=== PATIENT | female | born 1980 | race Caucasian/White ===

== ENCOUNTER 2019-11-18 23:40 | Inpatient (IN) | payer OTHER ==
[~2019-11-18] VITALS: Ht 165.1 cm; Wt 94.5 kg
[2019-11-19] VITALS (10 sets, daily range): BP systolic 98–119; BP diastolic 60–70; Ht 165.1 cm; Wt 94.5 kg
[2019-11-19 00:48] LABS: CALC OSMOLALITY 273 mosm/kg (275-300); CALCIUM 8.3 mg/dL (8.5-10.1); CARBON DIOXIDE 24.2 mmol/L (21.0-32.0); CHLORIDE - SERUM 105 mmol/L (98-107); CREATININE - SERUM 0.6 mg/dL (0.6-1.3); GLUCOSE 74 mg/dL (74-106); POTASSIUM - SERUM 3.6 mmol/L (3.5-5.1); SODIUM 139 mmol/L (136-145); UREA NITROGEN 4 mg/dL (7-18); eGFR NON AFRICAN AMERICAN > 90 mL/min (90-120)
[2019-11-19 00:49] LABS: BASOPHILS 0.1 % (0-2); EOSINOPHILS 0.3 % (0-7); HEMATOCRIT 35.6 % (36.0-48.0); HEMOGLOBIN 11.6 g/dL (12-16); IMMATURE GRANULOCYTES 1.2 % (0-5); LYMPHOCYTES 16.5 % (15-50); MCH 28.1 pg (26.0-34.0); MCHC 32.6 g/dL (31.0-37.0); MCV 86.2 fL (80.0-100.0); MEAN PLATELET VOLUME 8.8 fL (7.4-10.4); MONOCYTES 8.6 % (2-11); NEUTROPHILS 73.3 % (40-80); PLATELET COUNT 467 10x3/uL (130-400); RBC 4.13 10x6/uL (4.00-5.40); RDW 14.2 % (11.5-14.5); WBC 17.7 10x3/uL (4.8-10.8)
[2019-11-19 00:59] LABS: ALBUMIN 2.5 g/dL (3.4-5.0); ALKALINE PHOSPHATASE 94 U/L (30-120); ALT (SGPT) 20 U/L (10-68); BILIRUBIN - TOTAL 0.32 mg/dL (0.2-1.3); PROTEIN - SERUM 7.5 g/dL (6.4-8.2)
--- NOTE | 2019-11-19 01:00 | NUR ---
PT C/O PAIN TO IV SITE TO L UPPER ARM. IV RESITED TO R HAND.
--- NOTE | 2019-11-19 07:25 | NUR ---
ALERT AND ORIENTED. LUNGS CLEAR BILATERALLY. HEART SOUNDS S1 AND S2 HEARD IN ALL [place]. BOWEL SOUNDS ACTIVE X 4. IV TO RIGHT HAND PATENT WITHOUT REDNESS. DENIES NEEDS. BED LOW. CALL VALLES AND PERSONAL ITEMS IN REACH. WILL CONTINUE TO MONITOR.
[2019-11-19 09:01] LABS: CALC OSMOLALITY 277 mosm/kg (275-300); CARBON DIOXIDE 24.4 mmol/L (21.0-32.0); CHLORIDE - SERUM 107 mmol/L (98-107); CREATININE - SERUM 0.6 mg/dL (0.6-1.3); GLUCOSE 60 mg/dL (74-106); POTASSIUM - SERUM 3.5 mmol/L (3.5-5.1); SODIUM 142 mmol/L (136-145); UREA NITROGEN 3 mg/dL (7-18); eGFR NON AFRICAN AMERICAN > 90 mL/min (90-120)
[2019-11-19 09:07] LABS: INR 1.11 (0.85-1.17); PROTIME 14.2 SECONDS (11.6-15.0)
[2019-11-19 09:08] LABS: APTT 32.7 SECONDS (22.8-39.4)
[2019-11-19 09:23] LABS: BASOPHILS 0.2 % (0-2); EOSINOPHILS 0.4 % (0-7); HEMATOCRIT 35.3 % (36.0-48.0); HEMOGLOBIN 11.3 g/dL (12-16); LYMPHOCYTES 15.9 % (15-50); MCV 87.4 fL (80.0-100.0); MEAN PLATELET VOLUME 8.9 fL (7.4-10.4); MONOCYTES 8.2 % (2-11); NEUTROPHILS 74.3 % (40-80); PLATELET COUNT 473 10x3/uL (130-400); RBC 4.04 10x6/uL (4.00-5.40); RDW 14.5 % (11.5-14.5); WBC 16.6 10x3/uL (4.8-10.8)
--- NOTE | 2019-11-19 10:41 | NUR ---
RESTING IN BED. DENIES NEEDS. WILL CONTINUE TO MONITOR.
--- NOTE | 2019-11-19 20:00 | NUR ---
PT SITTING UP IN BED WITHOUT DISTRESS, AOX4. IV LEFT FA INFUSING NS @ 125. MORPHINE BEHAVIORAL TECHNICIAN FOR PAIN CONTROL. BILI DRAIN TO RIGHT SIDE WITH BLOODY DRAINAGE. DENIES NEEDS AT THIS TIME. CL IN REACH, WILL CTM
[2019-11-20 00:28] VITALS: BP 101/68
[2019-11-20 05:35] LABS: BASOPHILS 0.1 % (0-2); EOSINOPHILS 0.5 % (0-7); HEMOGLOBIN 10.7 g/dL (12-16); LYMPHOCYTES 21.2 % (15-50); MCH 27.4 pg (26.0-34.0); MCHC 31.5 g/dL (31.0-37.0); MCV 87.2 fL (80.0-100.0); MEAN PLATELET VOLUME 8.8 fL (7.4-10.4); MONOCYTES 6.6 % (2-11); NEUTROPHILS 70.6 % (40-80); PLATELET COUNT 439 10x3/uL (130-400); RDW 14.6 % (11.5-14.5); WBC 12.7 10x3/uL (4.8-10.8)
[2019-11-20 05:50] VITALS: BP 108/68
[2019-11-20 05:52] LABS: ALBUMIN 2.3 g/dL (3.4-5.0); ALKALINE PHOSPHATASE 78 U/L (30-120); ALT (SGPT) 18 U/L (10-68); BILIRUBIN - TOTAL 0.32 mg/dL (0.2-1.3); CALC OSMOLALITY 267 mosm/kg (275-300); CALCIUM 7.7 mg/dL (8.5-10.1); CARBON DIOXIDE 21.8 mmol/L (21.0-32.0); CHLORIDE - SERUM 103 mmol/L (98-107); CREATININE - SERUM 0.7 mg/dL (0.6-1.3); GLUCOSE 75 mg/dL (74-106); POTASSIUM - SERUM 3.6 mmol/L (3.5-5.1); PROTEIN - SERUM 6.7 g/dL (6.4-8.2); SODIUM 136 mmol/L (136-145); UREA NITROGEN 3 mg/dL (7-18); eGFR NON AFRICAN AMERICAN > 90 mL/min (90-120)
--- NOTE | 2019-11-20 08:00 | NUR ---
SHE IS ALART, TAKING. HAS A BILI DRAIN ON THE RIGHT SIDE OF HER ABD. SHE IS USING A FOOD COUNTER ATTENDANT FOR PAIN. THE CALL LIGHT IS WITHIN REACH.
[2019-11-20 09:00] VITALS: BP 108/72
[2019-11-20 18:01] VITALS: BP 126/77
--- NOTE | 2019-11-20 19:20 | NUR ---
PT SITTING UP IN BED WITHOUT DISTRESS, AOX4. IV RIGHT HAND INFUSING NS @ 125. BILI DRAIN TO RIGHT SIDE, DRESSING CDI. DENIES NEEDS AT THIS TIME. CL IN REACH, WILL CTM
[2019-11-20 20:00] VITALS: BP 111/67
--- NOTE | 2019-11-20 21:00 | NUR ---
PT STATES PAIN 11/12, GAVE NORCO ORDERED. DENIES OTHER NEEDS, WILL CTM
[2019-11-21] VITALS: BP 118/68
[2019-11-21 04:00] VITALS: BP 120/83
--- NOTE | 2019-11-21 07:27 | NUR ---
SHE IS ALERT, RATES PAIN 7/10. BILI DRAIN TO THE RIGHT LOWER SIDE OF HER ABDOMEM, DRESSING CLEAN AND DRY AND INTACT. THE CALL LIGHT IS WITHIN REACH.
--- NOTE | 2019-11-21 08:40 | NUR ---
HER IV IS OUT, I LET VICKI FROM OUT VASCULAR ACCESS TEAM KNOW ABOUT HER IV BEING OUT.
[2019-11-21 09:32] VITALS: BP 120/77
--- NOTE | 2019-11-21 09:45 | NUR ---
NEW IV TO THE LAC.
[2019-11-21 13:17] VITALS: BP 175/88
[2019-11-21 17:07] VITALS: BP 148/91
[2019-11-21 20:00] VITALS: BP 122/75
--- NOTE | 2019-11-21 20:00 | NUR ---
PT SITTING UP IN BED WITHOUT DISTRESS, AOX4. IV LEFT AC INFUSING NS @ 75. RIGHT SIDE BILI DRAIN IN PLACE, DRESSING CDI. DENIES NEEDS AT THIS TIME. CL IN REACH, WILL CTM
--- NOTE | 2019-11-21 23:00 | NUR ---
PT UP TO SHOWER AT THIS TIME, BILI DRAIN COVERED
[2019-11-22] VITALS: BP 111/73
[2019-11-22 04:00] VITALS: BP 129/77
[2019-11-22 05:18] LABS: BASOPHILS 0.1 % (0-2); HEMATOCRIT 32.6 % (36.0-48.0); HEMOGLOBIN 10.5 g/dL (12-16); IMMATURE GRANULOCYTES 0.5 % (0-5); LYMPHOCYTES 32.4 % (15-50); MCH 27.6 pg (26.0-34.0); MCHC 32.2 g/dL (31.0-37.0); MCV 85.6 fL (80.0-100.0); MEAN PLATELET VOLUME 8.8 fL (7.4-10.4); MONOCYTES 8.7 % (2-11); NEUTROPHILS 57.3 % (40-80); PLATELET COUNT 435 10x3/uL (130-400); RBC 3.81 10x6/uL (4.00-5.40); RDW 14.3 % (11.5-14.5)
[2019-11-22 05:23] LABS: WBC 7.3 10x3/uL (4.8-10.8)
[2019-11-22 05:47] LABS: CALCIUM 7.7 mg/dL (8.5-10.1); CHLORIDE - SERUM 109 mmol/L (98-107); CREATININE - SERUM 0.8 mg/dL (0.6-1.3); GLUCOSE 90 mg/dL (74-106); POTASSIUM - SERUM 3.4 mmol/L (3.5-5.1); SODIUM 141 mmol/L (136-145); eGFR NON AFRICAN AMERICAN 84 mL/min (90-120)
[2019-11-22 05:48] LABS: CALC OSMOLALITY 277 mosm/kg (275-300); CARBON DIOXIDE 27.4 mmol/L (21.0-32.0); UREA NITROGEN 4 mg/dL (7-18)
--- NOTE | 2019-11-22 07:26 | NUR ---
PT LAYING IN BED WITH EYES OPEN, ALERT AND ORIENTED. LAB CURRENTLY DRAWING BLOOD. IV LOCATED TO LEFT AC RUNNING NS @ 75ML/HR. BILIDRAIN LOCATED TO LEFT ABD. JOSÉ MIGUELIES NEEDS CURRENTLY, WILL CONT TO MONITOR.
[2019-11-22] MEDS ORDERED: LEVOFLOXACIN500 MG PO (08:44)
[2019-11-22] MEDS ORDERED: HYDROCODON-ACE1 EAC7 PO (08:44)
[2019-11-22 10:29] VITALS: BP 153/75
== END 2019-11-22 15:23 | disposition home or self-care (01) | DRG 373 ==
LOC: D.ER 23:40 → D.MS 11-19 00:21
PROVIDERS: Family Medicine; General Practice; ADMIT Surgery; ATTEND Surgery
PROC: 0W9G30Z Drainage of Peritoneal Cavity with Drainage Device, Percutaneous Approach (ICD-10-PCS; principal; 2019-11-19 14:13)
DX: K35.21 Acute appendicitis with generalized peritonitis, with abscess (principal); Z72.0 Tobacco use

== ENCOUNTER 2019-11-25 07:45 | Outpatient (CLI) | payer OTHER ==
[~2019-11-25] VITALS: Ht 165.1 cm; Wt 95.5 kg
--- NOTE | ~2019-11-25 | HEMODYNAMI ---
PATIENT:JOSEPH BARNETT MEDICAL RECORD: [id number] : 78 LOCATION:[facility] ADMISSION DATE: 11/25/19 Generatedon:11/25/201911:01 Patient name: JOSEPH BARNETT Patient #: [id number] SSN: : [id number] Date of study: 11/25/2019 Page: Of Hemodynamic Procedure Report Patient Data Patient Demographics Procedure consent was obtained First Name: JOSEPH Gender: Female Last Name: ERICKA : 1980 Patient #: [id number] Age: 39 year(s) Race: Unknown Additional ID: [id number] Contact details [address]: [address] [place] [address] State: [place] City: [place] Zip code: [address] Past Medical History Allergies Allergen Reaction Date Comments Reported Penicillins 11/25/2019 Admission Admission Data Admission Date: 11/25/2019 Admission Time: 7:45 Height (in.): 65 BSA: 2.02 (m2) Height (cm.): 165.1 BMI: 34.95 (kg/m2) Weight (lbs.): 210 Weight (kg.): 95.25 Procedure Procedure Types Cath Procedure Peripheral Cath Diagnostic Procedure Mechatronics Technologist Peripheral Procedures Abscess Abscessogram Procedure Description Procedure Date Procedure Date: 11/25/2019 Procedure Start Time: 10:44 Procedure Staff Name Function Inocente Muniz MD Performing Physician Melisa Guajardo RT Deckhand Oyster Dredge Terri STALLINGS RN Nurse Obey Stokes RT Scrub Procedure Data Cath Procedure Fluoroscopy Diagnostic fluoroscopy Total fluoroscopy Time: 2.2 time: 2.2 min min Diagnostic fluoroscopy Total fluoroscopy dose: 86 dose: 86 mGy mGy Contrast Material Contrast Material Type Amount (ml) Isovue 300 11 Hemodynamics Rest BSA: 2.02 (m2) O2 Consumption: Estimated: 202.37 (ml/min) O2 Consumption indexed : Estimated:100.18 (ml/min/m) Heart Rate: 66 (bpm) Snapshots Pre Cath Intra NCS Post Cath Vital Signs Time Heart Resp SPO2 etCO2 NIBP (mmHg) Rhythm Pain Sedation Rate (ipm) (%) (mmHg) Status Level (bpm) 10:33:53 64 16 98 0 146/89(106) NSR 0 (11) 10(A) , No pain 10:38:10 56 17 99 29.9 134/76(103) NSR 0 (11) 10(A) , No pain 10:42:17 58 21 99 29.1 136/86(100) NSR 0 (11) 10(A) , No pain 10:46:29 61 11 98 26.1 138/77(122) NSR 0 (11) 10(A) , No pain 10:50:39 67 10 97 32.8 140/82(119) NSR 0 (11) 10(A) , No pain 10:54:49 71 11 98 29.1 141/84(127) NSR 0 (11) 10(A) , No pain 10:59:01 57 15 99 35.8 144/79(97) NSR 0 (11) 10(A) , No pain Procedure Log Time Note 10:04:29 Patient Height : 65 inches 10:04:37 Patient Weight : 210 lbs 10:05:04 Time tracking: Regular hours (M-F 7:00 - 5:00) 10:05:18 Patient received from Outpatients to IR Alert and oriented. Tansferred to table in Supine position. 10:05:21 Signed procedure consent form obtained from patient. 10:05:27 H&P Date Dictated: 11/25/2019 Within 30 days and on chart., H&P Addendum completed by physician on day of procedure. (MUST COMPLETE FOR ALL OUTPATIENTS). 10:05:29 Pre-procedure instructions explained to patient. 10:05:30 Pre-op teaching completed and patient verbalized understanding. 10:05:33 Family in waiting room. 10:05:39 Patient NPO since Midnight. 10:05:49 Patient allergic to Penicillins 10:06:00 Is the patient allergic to Iodine/contrast media? No. 10:06:05 Is patient on blood thinner?No 10:06:09 - 10:21:46 Patient diabetic? No. 10:21:48 ----Pre-sedation anethsthesia assessment.---- 10:21:51 Previous problem with sedation/anesthesia? No ? 10:21:54 Snore? Yes 10:21:56 Sleep apnea? No 10:21:58 Deviated septum? No 10:22:00 Opens mouth fully? Yes 10:22:03 Sticks out tongue? Yes 10:22:05 Airway obstruction? No ? 10:22:09 Dentures? No ? 10:32:52 Vital chart was started 10:36:00 ECG and BP/O2 sat monitors applied to patient. 10:36:02 Baseline sample Acquired. 10:36:05 Full Disclosure recording started 10:36:06 - 10:44:02 Physician arrived 10:44:02 --------ALL STOP TIME OUT------ 10:44:03 Final Timeout: patient, procedure, and site verified with staff and physician. All members of the team are in agreement. 10:44:21 Right abdomen site verified by team. 10:44:27 Procedure started. 10:54:59 STOPCOCK 3-Way Large Bore ([id number]) opened to sterile field. 10:55:26 BAG, DRAINAGE EMPTY 600ML W/MANISH ([id number]) opened to sterile field. 10:55:47 Procedure ended.(Physican Out) 10:56:31 Fluoroscopy time 02.20 minutes. 10:56:44 Fluoroscopy dose: 86 mGy 10:56:44 Flurop Dose total: 86 10:56:57 Contrast amount:Isovue 300 11ml. 10:57:01 Procedure and supply charges have been captured, reviewed, submitted an d are correct. 11:00:27 Report given to Outpatients. 11:01:36 Vital chart was stopped Device Usage Item Manufacture Quantity Catalog Hospital Part Current Minimal Lot# / Name Number Charge Number Stock Stock Serial# Code [facility] 1 [id number] 3-Way Large Bore ([id number]) BAG, Merit 1 [id number] 5 DRAINAGE Medical EMPTY 600ML W/MANISH ([id number]) Signature Audit [place] Stage Time Signature Unsigned Intra-Procedure 11/25/2019 Melisa Guajardo 11:01:32 AM RT(R) [facility] [address] [place] [id number]
[~2019-11-25 07:45] MED LIST: HYDROCODON-ACE1 EAC7 PO; LEVOFLOXACIN500 MG PO
[2019-11-25 08:17] LABS: HEMATOCRIT 43.5 % (36.0-48.0); MCH 27.3 pg (26.0-34.0); MCHC 32.2 g/dL (31.0-37.0); MEAN PLATELET VOLUME 8.3 fL (7.4-10.4); RBC 5.12 10x6/uL (4.00-5.40); WBC 8.2 10x3/uL (4.8-10.8)
[2019-11-25 09:06] LABS: APTT 31.2 SECONDS (22.8-39.4); INR 1.05 (0.85-1.17); PROTIME 13.6 SECONDS (11.6-15.0)
[2019-11-25 09:10] LABS: CALC OSMOLALITY 279 mosm/kg (275-300); CALCIUM 9.4 mg/dL (8.5-10.1); CARBON DIOXIDE 30.9 mmol/L (21.0-32.0); CHLORIDE - SERUM 103 mmol/L (98-107); CREATININE - SERUM 0.7 mg/dL (0.6-1.3); GLUCOSE 86 mg/dL (74-106); SODIUM 142 mmol/L (136-145); UREA NITROGEN 6 mg/dL (7-18); eGFR NON AFRICAN AMERICAN > 90 mL/min (90-120)
[2019-11-25 09:22] VITALS: BP 116/72; Ht 165.1 cm; Wt 95.5 kg
== END 2019-11-25 12:15 | disposition home or self-care (01) ==
LOC: D.SP 07:45 → D.CT 10:00 → D.RAD 10:30 → D.SP 12:15
PROVIDERS: Radiology Diagnostic Radiology; ATTEND General Practice
DX: K35.33 Acute appendicitis with perforation, localized peritonitis, and gangrene, with abscess (principal)

== ENCOUNTER → 2019-12-03 10:37 | Outpatient (CLI) | payer OTHER ==
[2019-11-25 09:22] VITALS: BMI 35.0
--- NOTE | ~2019-12-03 | HEMODYNAMI ---
PATIENT:JOSEPH BARNETT MEDICAL RECORD: [id number] : 78 LOCATION:[facility] ADMISSION DATE: 12/03/19 Generatedon:12/03/201912:17 Patient name: JOSEPH BARNETT Patient #: [id number] SSN: : 1980 Date of study: 12/03/2019 Page: Of Hemodynamic Procedure Report Patient Data Patient Demographics Procedure consent was obtained First Name: JOSEPH Gender: Female Last Name: ERICKA : 1980 Patient #: [id number] Age: 39 year(s) Race: Unknown Additional ID: [id number] Contact details [address]: [address] [place] [address] State: [place] City: [place] Zip code: [address] Past Medical History Allergies Allergen Reaction Date Comments Reported Penicillins 11/25/2019 Penicillins 12/03/2019 Admission Admission Data Admission Date: 12/03/2019 Admission Time: 10:37 Procedure Procedure Types Cath Procedure Peripheral Cath Diagnostic Procedure Hydrator Peripheral Procedures Abscess Abscessogram Procedure Description Procedure Date Procedure Date: 12/03/2019 Procedure Start Time: 12:11 Procedure Staff Name Function Issa Umana MD Performing Physician Melisa Guajardo RT Office Technician Nimco Strauss RN Nurse SHOAIB GASPAR RT Scrub Procedure Data Cath Procedure Fluoroscopy Diagnostic fluoroscopy Total fluoroscopy Time: 0.3 time: 0.3 min min Diagnostic fluoroscopy Total fluoroscopy dose: 2 dose: 2 mGy mGy Contrast Material Contrast Material Type Amount (ml) Isovue 300 10 Hemodynamics Rest Pre Cath Intra NCS Post Cath Procedure Log Time Note 11:54:56 Use device set IR Diagnostic 11:54:57 Tegaderm 4 x 4 ([id number]) opened to sterile field. 11:54:58 Sterile Angiographic Pack opened to sterile field. 11:54:59 Bag Decanter () opened to sterile field. 11:55:05 - 12:08:09 Time tracking: Regular hours (M-F 7:00 - 5:00) 12:08:15 Patient received from Other to IR Alert and oriented. Tansferred to table in Supine position. 12:08:27 Signed procedure consent form obtained from patient. 12:08:32 Pre-procedure instructions explained to patient. 12:08:33 Pre-op teaching completed and patient verbalized understanding. 12:08:38 Family in waiting room. 12:08:49 Patient allergic to Penicillins 12:09:50 Is the patient allergic to Iodine/contrast media? No. 12:10:04 Right abdomen area was prepped with chlora-prep and draped in sterile fashion 12:10:07 Physician arrived 12::08 --------ALL STOP TIME OUT------ 12:10:08 Final Timeout: patient, procedure, and site verified with staff and physician. All members of the team are in agreement. 12:10:57 Fire Safety Assessment: A--An alcohol-based skin anteseptic being used preoperatively. 12:11:25 Procedure started. 12:11:25 Full Disclosure recording started 12:13:44 BAG, DRAINAGE EMPTY 600ML W/MANISH ([id number]) opened to sterile field. 12:13:53 Procedure ended.(Physican Out) 12:13:57 Fluoroscopy time 00.30 minutes. 12:13:59 Fluoroscopy dose: 2 mGy 12:13:59 Flurop Dose total: 2 12:14:06 Contrast amount:Isovue 300 10ml. 12:16:45 Procedure and supply charges have been captured, reviewed, submitted an d are correct. Device Usage Item Name Manufacture Quantity Catalog Hospital Part Current Minimal Lot# / Number Charge Number Stock Stock Serial# Code Tegaderm 4 x 3M 1 [id number] 4 ([id number]) Sterile Cardinal 1 [id number] 5 Angiographic Health Pack Bag Decanter [employer] 1 [id number] [id number] 5 () [employer] BAG, Merit 1 [id number] 5 DRAINAGE Medical EMPTY 600ML W/MANISH ([id number]) Signature Audit [place] Stage Time Signature Unsigned Intra-Procedure 12/03/2019 Melisa Guajardo 12:17:09 PM RT(R) [facility] [address] [place] [address]
== END | disposition home or self-care (01) ==
LOC: D.CT 10:37
PROVIDERS: ATTEND Surgery
DX: K75.0 Abscess of liver (principal)

== ENCOUNTER 2019-12-12 06:59 | Inpatient (IN) | payer OTHER ==
[~2019-12-12] VITALS: Ht 165.1 cm; Wt 95.5 kg
[2019-12-12] VITALS (12 sets, daily range): BP systolic 103–134; BP diastolic 63–83; Ht 165.1 cm; Wt 95.5 kg
[2019-12-12 07:21] LABS: BASOPHILS 0.3 % (0-2); EOSINOPHILS 2.3 % (0-7); HEMATOCRIT 42.3 % (36.0-48.0); IMMATURE GRANULOCYTES 0.4 % (0-5); MCH 28.1 pg (26.0-34.0); MCHC 33.1 g/dL (31.0-37.0); MCV 84.8 fL (80.0-100.0); MEAN PLATELET VOLUME 8.6 fL (7.4-10.4); MONOCYTES 6.8 % (2-11); NEUTROPHILS 60.2 % (40-80); RBC 4.99 10x6/uL (4.00-5.40); RDW 14.4 % (11.5-14.5); WBC 7.9 10x3/uL (4.8-10.8)
[2019-12-12 07:47] LABS: PLATELET COUNT 247 10x3/uL (130-400)
[2019-12-13] VITALS: BP 123/74
[2019-12-13 04:00] VITALS: BP 113/76
[2019-12-13 06:27] LABS: BASOPHILS 0.1 % (0-2); EOSINOPHILS 0.1 % (0-7); HEMATOCRIT 38.3 % (36.0-48.0); HEMOGLOBIN 12.4 g/dL (12-16); IMMATURE GRANULOCYTES 0.3 % (0-5); LYMPHOCYTES 12.5 % (15-50); MCH 27.9 pg (26.0-34.0); MCHC 32.4 g/dL (31.0-37.0); MCV 86.1 fL (80.0-100.0); MEAN PLATELET VOLUME 8.9 fL (7.4-10.4); MONOCYTES 8.9 % (2-11); NEUTROPHILS 78.1 % (40-80); PLATELET COUNT 239 10x3/uL (130-400); RBC 4.45 10x6/uL (4.00-5.40); RDW 14.5 % (11.5-14.5)
[2019-12-13 06:30] LABS: WBC 11.4 10x3/uL (4.8-10.8)
[2019-12-13 06:42] LABS: ALBUMIN 2.9 g/dL (3.4-5.0); ALKALINE PHOSPHATASE 45 U/L (30-120); ALT (SGPT) 17 U/L (10-68); CALC OSMOLALITY 269 mosm/kg (275-300); CALCIUM 8.6 mg/dL (8.5-10.1); CARBON DIOXIDE 22.3 mmol/L (21.0-32.0); CHLORIDE - SERUM 103 mmol/L (98-107); CREATININE - SERUM 0.6 mg/dL (0.6-1.3); GLUCOSE 113 mg/dL (74-106); PROTEIN - SERUM 6.8 g/dL (6.4-8.2); SODIUM 136 mmol/L (136-145); UREA NITROGEN 4 mg/dL (7-18); eGFR NON AFRICAN AMERICAN > 90 mL/min (90-120)
--- NOTE | 2019-12-13 08:00 | NUR ---
ASSESSMENT PER FLOW SHEET. PATIENT IS WITHOUT DISTRESS.TOLERATING SIPS OF CLD.BULB INSPECTOR USE INSTRUCTED.MONITOR FOR NEEDS
[2019-12-13 09:51] VITALS: BP 107/71
[2019-12-13 14:57] VITALS: BP 97/59
--- NOTE | 2019-12-13 15:51 | NUR ---
PAIN BETTER CONTROLLED AFTER TORADOL GIVEN.
[2019-12-13 17:40] VITALS: BP 95/58
--- NOTE | 2019-12-13 18:51 | NUR ---
HAS AMBULATED IN [place] 250 FEET AND PLANS TO WALK AGAIN. TOLERATING SOME CLD.REMAINS WITHOUT CHANGE. CONT PLAN OF CARE
[2019-12-13 20:00] VITALS: BP 96/63
--- NOTE | 2019-12-14 08:06 | NUR ---
PT ALERT AND ORIENTED X4 UPON ENTERING. ADMINISTERED MORNING MEDICATION, REQUESTED A FEMINE HYGIENE PAD, WILL PROVIDE ONE. ASSESSMENT PERFORMED AT THIS TIME. DENIES ANY OTHER NEEDS, BED IN LOWEST POSITION, BED RAILS X2, CALL LIGHT WITHIN REACH. WILL CONTINUE TO MONITOR.
[2019-12-14 08:51] VITALS: BP 105/69
--- NOTE | 2019-12-14 12:02 | NUR ---
HUNG IV ABX. PT RESTING COMFORTABLY IN BED. DENIES ANY NEEDS. WILL CONTINUE TO MONITOR.
[2019-12-14 14:02] VITALS: BP 115/80
--- NOTE | 2019-12-14 14:23 | NUR ---
I have reviewed this patient and I concur with the Shift Assessment completed by the Licensed Practical Nurse today this shift.
--- NOTE | 2019-12-14 15:22 | NUR ---
PT IS COMPLAINING OF ABDOMINAL PAIN THAT MORPHINE IS NOT CONTROLLING. WILL SPEAK WITH SURGERY. PT HAS NO OTHER MEDICATION AVAILABLE TO GIVE AT THIS TIME.
--- NOTE | 2019-12-14 16:36 | NUR ---
ADMINISTERED PRN ZOFRAN FOR NAUSEA. DENIES ANY OTHER NEEDS. WILL CONTINUE TO MONITOR.
[2019-12-14 17:09] VITALS: BP 116/75
--- NOTE | 2019-12-14 19:03 | NUR ---
HUNG IV ABX AND STARTED NEW DILAUDID MACHINE CHOCOLATE MOLDER. PT UP TO BATHROOM DENIES ANY NEEDS. WILL CONTINUE TO MONITOR.
--- NOTE | 2019-12-14 19:48 | NUR ---
PATIENT RESTING IN BED WITH NO S/S OF DISTRESS AND DENIES NEEDS AT THIS TIME. BED IN LOWEST POSITION AND CALL LIGHT WITHIN REACH. ENCOURAGED THE PATIENT TO CALL IF SHE HAS NEEDS. WILL CONTINUE TO MONITOR.
[2019-12-14 20:00] VITALS: BP 113/70
--- NOTE | 2019-12-14 22:35 | NUR ---
ADMINISTERED MEDS PER ORDER. DENIES OTHER NEEDS. WILL CONTINUE TO MONITOR.
[2019-12-15 04:00] VITALS: BP 115/73
--- NOTE | 2019-12-15 06:45 | NUR ---
A&O RESTING IN BED. C/O NAUSEA. NO C/O PAIN, DILAUDID CONTRACTS ANALYST MANAGING PAIN AT THIS TIME. IV TO LEFT HAND, NS INFUSING @ 50ML/HR AND PROCAL @ 50ML/HR. SITE PATENT WITHOUT REDNESS OR SWELLING. MIDLINE INCISION TO ABDOMEN, DRESSING C/D/I. DENIES ANY NEEDS AT THIS TIME. CALL LIGHT IN REACH. WILL CONTINUE TO MONITOR.
--- NOTE | 2019-12-15 06:46 | NUR ---
PADDER: 65ML CHARTED IN THE PADDER IS THE TOTAL FROM 12/13 7A-7P MORPHINE AND DILAUDID INFUSION AND 12/13 7P-7A DILAUDID INFUSION.
[2019-12-15 09:24] VITALS: BP 109/76
[2019-12-15 11:06] LABS: HEMATOCRIT 40.5 % (36.0-48.0); HEMOGLOBIN 13.2 g/dL (12-16); LYMPHOCYTES 4.6 % (15-50); MCH 27.6 pg (26.0-34.0); MCHC 32.6 g/dL (31.0-37.0); MCV 84.6 fL (80.0-100.0); MEAN PLATELET VOLUME 8.4 fL (7.4-10.4); NEUTROPHILS 92.4 % (40-80); PLATELET COUNT 317 10x3/uL (130-400); RBC 4.79 10x6/uL (4.00-5.40); WBC 18.9 10x3/uL (4.8-10.8)
[2019-12-15 11:16] LABS: ALBUMIN 2.7 g/dL (3.4-5.0); ALKALINE PHOSPHATASE 63 U/L (30-120); ALT (SGPT) 17 U/L (10-68); BILIRUBIN - TOTAL 0.56 mg/dL (0.2-1.3); CALC OSMOLALITY 263 mosm/kg (275-300); CARBON DIOXIDE 27.5 mmol/L (21.0-32.0); CHLORIDE - SERUM 97 mmol/L (98-107); CREATININE - SERUM 0.6 mg/dL (0.6-1.3); GLUCOSE 127 mg/dL (74-106); POTASSIUM - SERUM 4.1 mmol/L (3.5-5.1); PROTEIN - SERUM 7.5 g/dL (6.4-8.2); SODIUM 132 mmol/L (136-145); UREA NITROGEN 5 mg/dL (7-18); eGFR NON AFRICAN AMERICAN > 90 mL/min (90-120)
[2019-12-15 12:54] VITALS: BP 116/81
--- NOTE | 2019-12-15 16:41 | NUR ---
I have reviewed this patient and I concur with the Shift Assessment completed by the Licensed Practical Nurse today this shift.
--- NOTE | 2019-12-15 18:09 | NUR ---
A&O RESTING IN BED WITH EYES OPEN. NO C/O PAIN. NO S/S OF ACUTE DISTRESS NOTED. DENIES ANY NEEDS AT THIS TIME. CALL LIGHT IN REACH. WILL CONTINUE TO MONITOR.
[2019-12-15 20:00] VITALS: BP 115/69
--- NOTE | 2019-12-15 20:30 | NUR ---
DRSGS CHANGED TO MIDLINE ABD INCISION. 8 LANE NOTED AND INCISION IS WELL APPROXIMATED, NO S/S OF INFECTION. BANDAIDS CHANGED TO LT AND RT ABD AND LOWER PELVIS. PT HENRY WELL.
--- NOTE | 2019-12-15 22:30 | NUR ---
AMBULATEDIN HALLWAY AROUND NURSES STATION. PT STATES SHE GOT A LITTLE SOB. WEARS O2 @ 2L/NC PRN. STATES SHE IS PASSING GAS. PROCAL @ 50 MLHR INFUSING WITH NS @ 50 MLHR IN LT HAND WITH DILAUDID BANANA CARRIER. RATES PAIN IN ABD 4.
[2019-12-16 04:00] VITALS: BP 110/75
[2019-12-16 04:42] LABS: HEMATOCRIT 33.4 % (36.0-48.0); HEMOGLOBIN 10.9 g/dL (12-16); LYMPHOCYTES 17.5 % (15-50); MCH 27.9 pg (26.0-34.0); MCHC 32.6 g/dL (31.0-37.0); MCV 85.4 fL (80.0-100.0); MEAN PLATELET VOLUME 8.6 fL (7.4-10.4); NEUTROPHILS 74.5 % (40-80); PLATELET COUNT 305 10x3/uL (130-400); RBC 3.91 10x6/uL (4.00-5.40); RDW 13.9 % (11.5-14.5)
[2019-12-16 04:56] LABS: ALBUMIN 2.3 g/dL (3.4-5.0); ALKALINE PHOSPHATASE 50 U/L (30-120); ALT (SGPT) 14 U/L (10-68); BILIRUBIN - TOTAL 0.35 mg/dL (0.2-1.3); CALC OSMOLALITY 272 mosm/kg (275-300); CALCIUM 8.6 mg/dL (8.5-10.1); CARBON DIOXIDE 28.9 mmol/L (21.0-32.0); CHLORIDE - SERUM 101 mmol/L (98-107); CREATININE - SERUM 0.7 mg/dL (0.6-1.3); GLUCOSE 88 mg/dL (74-106); POTASSIUM - SERUM 3.6 mmol/L (3.5-5.1); PROTEIN - SERUM 6.5 g/dL (6.4-8.2); SODIUM 138 mmol/L (136-145); UREA NITROGEN 6 mg/dL (7-18); eGFR NON AFRICAN AMERICAN > 90 mL/min (90-120)
--- NOTE | 2019-12-16 06:08 | NUR ---
C/O NAUSEA. MEDICATED WITH PHENERGAN 25MG IM ORDERED. CL IN REACH.
--- NOTE | 2019-12-16 06:40 | NUR ---
VOMITED 200 ML OF CLEAR GREEN EMESIS.
--- NOTE | 2019-12-16 07:15 | NUR ---
LYING IN BED,WITHOUT DISTRESS. GAS DROPS ORDERED PER PATIENT REQUEST. MONITOR FOR NEEDS
--- NOTE | 2019-12-16 08:00 | NUR ---
ASSESSMENT PER FLOW SHEET.PATIENT IS WITHOUT DISTRESS.SHE HAD SOME NAUSEA BEFORE I GOT HERE THIS AM. SHE DENIES NAUSEA AT PRESENT.CALL LIGHT IN REACH
[2019-12-16 09:05] VITALS: BP 132/85
--- NOTE | 2019-12-16 10:00 | NUR ---
AMBULATED 250 FEET IN HALLS.TOLERATING SMALL AMOUNTS OF FLD.
[2019-12-16 13:06] VITALS: BP 112/68
--- NOTE | 2019-12-16 16:09 | NUR ---
AMBULATED 500 FEET IN HALLS
--- NOTE | 2019-12-16 17:02 | NUR ---
OUT IN HALLS AMBULATING AGAIN. SHE IS WITHOUT DISTRESS.
[2019-12-16 18:04] VITALS: BP 111/67
[2019-12-16 20:00] VITALS: BP 115/73
[2019-12-17 04:00] VITALS: BP 123/83
[2019-12-17 06:26] LABS: HEMATOCRIT 32.4 % (36.0-48.0); HEMOGLOBIN 10.5 g/dL (12-16); LYMPHOCYTES 12.4 % (15-50); MCH 27.5 pg (26.0-34.0); MCHC 32.4 g/dL (31.0-37.0); MCV 84.8 fL (80.0-100.0); MEAN PLATELET VOLUME 8.3 fL (7.4-10.4); NEUTROPHILS 78.7 % (40-80); PLATELET COUNT 336 10x3/uL (130-400); RBC 3.82 10x6/uL (4.00-5.40); RDW 14.1 % (11.5-14.5)
[2019-12-17 06:51] LABS: ALBUMIN 2.3 g/dL (3.4-5.0); ALKALINE PHOSPHATASE 49 U/L (30-120); ALT (SGPT) 15 U/L (10-68); BILIRUBIN - TOTAL 0.56 mg/dL (0.2-1.3); CALC OSMOLALITY 266 mosm/kg (275-300); CALCIUM 8.2 mg/dL (8.5-10.1); CARBON DIOXIDE 27.4 mmol/L (21.0-32.0); CHLORIDE - SERUM 101 mmol/L (98-107); CREATININE - SERUM 0.6 mg/dL (0.6-1.3); GLUCOSE 99 mg/dL (74-106); PHOSPHOROUS 2.9 mg/dL (2.5-4.9); POTASSIUM - SERUM 3.4 mmol/L (3.5-5.1); PROTEIN - SERUM 6.4 g/dL (6.4-8.2); SODIUM 135 mmol/L (136-145); UREA NITROGEN 5 mg/dL (7-18); eGFR NON AFRICAN AMERICAN > 90 mL/min (90-120)
[2019-12-17 06:58] LABS: WBC 12.4 10x3/uL (4.8-10.8)
[2019-12-17 09:35] VITALS: BP 116/71
[2019-12-17 13:17] VITALS: BP 131/80
[2019-12-17 17:47] VITALS: BP 119/73
--- NOTE | 2019-12-17 18:00 | NUR ---
PATIENT HAD BM WITH NO PROBLEMS AT THIS TIME. NO COMPLAINTS. EXPLAINED I WOULD CALL TO SEE IF SHE COULD DC. VERBALIZED UNDERSTANDING. CALL LIGHT WITHIN REACH.
[2019-12-17] MEDS ORDERED: HYDROCODON-ACE1 EAC7 PO (19:21)
[2019-12-17] MEDS ORDERED: VENTOLIN HFA [SP8 GM INH (19:21)
--- NOTE | 2019-12-17 19:26 | NUR ---
PATIENT TO BE DC'D. NO COMPLAINTS OR SIGNS OF DISTRESS. WAITING FOR TRANSPORTATION. CALL LIGHT WITHIN REACH.
--- NOTE | 2019-12-17 21:00 | NUR ---
PT WHEELEDTO ER EXIT, ACCOMPANIED BY SPOUSE.
[2019-12-18] MEDS ORDERED: HYDROCODON-ACE1 EAC7 PO (11:24)
[2019-12-18] MEDS ORDERED: LEVOFLOXACIN500 MG PO (11:24)
== END 2019-12-17 19:26 | disposition home or self-care (01) | DRG 330 ==
LOC: D.OPS 06:59 → D.MS 06:59 → D.OPS 08:30 → D.PAN 08:30 → D.OPS 09:30 → D.PAN 09:55 → D.OPS 10:00 → D.MS 11:02 → D.OPS 11:24 → D.MS 12-17 19:26 → D.OPS 12-18 09:00
PROVIDERS: Anesthesiology; Family Medicine Adult Medicine; ADMIT Surgery; ATTEND Surgery
PROC: 0DTF0ZZ Resection of Right Large Intestine, Open Approach (ICD-10-PCS; 2019-12-12)
PROC: 0DTJ0ZZ Resection of Appendix, Open Approach (ICD-10-PCS; 2019-12-12)
PROC: 0WJG4ZZ Inspection of Peritoneal Cavity, Percutaneous Endoscopic Approach (ICD-10-PCS; 2019-12-12)
PROC: 0WPF00Z Removal of Drainage Device from Abdominal Wall, Open Approach (ICD-10-PCS; 2019-12-12)
PROC: 0DTJ4ZZ Resection of Appendix, Percutaneous Endoscopic Approach (ICD-10-PCS; principal; 2019-12-12 09:30)
DX: K35.33 Acute appendicitis with perforation, localized peritonitis, and gangrene, with abscess (principal); K56.7 Ileus, unspecified; F17.200 Nicotine dependence, unspecified, uncomplicated; K38.3 Fistula of appendix; R05 Cough; E66.9 Obesity, unspecified; Z68.35 Body mass index [BMI] 35.0-35.9, adult; R06.00 Dyspnea, unspecified